=== PATIENT | female | born 1985 | race Caucasian/White ===

== ENCOUNTER 2021-08-23 15:23 | Outpatient (CLI) | payer BC ==
[2021-08-23] MEDS ORDERED: ZOLOFT100 MG PO (15:53)
[2021-08-23] MEDS ORDERED: LAMICTAL ODT50 MG PO (15:53)
[2021-08-23] MEDS ORDERED: PRENATAL CAPLE1 EAC1 (15:54)
[2021-08-23] MEDS ORDERED: FOLIC ACID20 MG (15:54)
[2021-08-23] MEDS ORDERED: DIAZEPAM5 MG PO (15:54)
== END 2021-08-23 15:52 | disposition home or self-care (01) ==
LOC: OBS/DEL 15:23
PROVIDERS: ATTEND Obstetrics & Gynecology
DX: O26.892 Other specified pregnancy related conditions, second trimester (principal); Z3A.23 23 weeks gestation of pregnancy; R10.2 Pelvic and perineal pain; W19.XXXA Unspecified fall, initial encounter